=== PATIENT | female | born 1965 | race American Indian/Alaskan Native ===

== ENCOUNTER 2020-05-12 10:38 | Emergency (ER) | payer OTHER ==
[2020-05-12 10:52] VITALS: BP 142/106
[2020-05-12] MEDS ORDERED: IBUPROFEN 800 MG TAB PO ONE (11:13)
[2020-05-12] MEDS ORDERED: CYCLOBENZAPRINE 10 MG TAB PO ONE (11:13)
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
--- NOTE | 2020-05-12 12:43 | XRay Report ---
BILATERAL RIBS 7 VIEWS INDICATION / CLINICAL INFORMATION: pain. COMPARISON: Prior chest radiograph dated 05/02/2014. FINDINGS: RIBS: No acute, displaced fracture or other acute abnormality. LUNGS: No acute findings. No pneumothorax. Lap band with abdominal port is noted. Signer Name: Gabriel Beckwith MD Signed: 05/12/2020 12:38 PM Workstation Name: [id number]
== END 2020-05-12 14:02 | disposition home or self-care (01) ==
LOC: ED 10:38
DX: S29.011A Strain of muscle and tendon of front wall of thorax, initial encounter (principal); M79.10 Myalgia, unspecified site; Z79.899 Other long term (current) drug therapy; Z88.6 Allergy status to analgesic agent; Z88.2 Allergy status to sulfonamides; Z88.8 Allergy status to other drugs, medicaments and biological substances; V49.49XA Driver injured in collision with other motor vehicles in traffic accident, initial encounter; Y93.89 Activity, other specified; Y92.488 Other paved roadways as the place of occurrence of the external cause; Y99.8 Other external cause status
CPT/HCPCS: 71111; 99283

== ENCOUNTER 2021-03-05 11:50 | Emergency (ER) | payer SELFPAY ==
--- NOTE | 2021-03-05 15:07 | Emergency Department Report ---
Minor Respiratory - [facility] Chief Complaint: Sore Throat Stated Complaint: SORE THROAT Time Seen by Provider: 03/05/21 14:13 Duration: 2 Days Minor Respiratory: Yes Cough, No Chest Pain, No Fever Other History: 55-year-old -[place]ong[place] female presents to the emergency room complaining of back pain with cough and thick mucus. She states is been going on since . She admits to having a positive Covid exposure. She denies any fever chills no nausea no vomiting. She states that she has hypertension is currently on amlodipine 5 mg. She denies any fever no chills no nausea no vomiting no chest pain or shortness of breath. ED Review of Systems ROS: Stated complaint: SORE THROAT Other details as noted in HPI ED Past Medical Hx - Past Medical History Hx Hypertension: Yes Hx Congestive Heart Failure: No Hx Diabetes: No Hx Asthma: No Hx COPD: No Additional medical history: Vertigo - Surgical History Additional Surgical History: right oophorectomy, x 1, partial hysterectomy, 2 eye repair surgeries - Social History Smoking Status: Never Smoker Substance Use Type: None - Medications Home Medications: Home Medications Medication Instructions Recorded Confirmed Last Taken Type Cyclobenzaprine [Flexeril] 10 mg PO QHS PRN #20 tablet 05/12/20 Unknown Rx Ibuprofen [Motrin 800 MG tab] 800 mg PO Q8HR PRN #30 tablet 05/12/20 Unknown Rx Minor Respiratory Exam - Exam General: Vital signs noted. No distress. Alert and acting appropriately. HEENT: Yes Moist Mucous Membranes, No Pharyngeal Erythema, No Pharyngeal Exudates, No Rhinorrhea, No Conjuctival Injection, No Frontal Tenderness, No Maxillary Tenderness Ear: Neither TM Bulge, Neither TM Erythema, Neither EAC Pain, Neither EAC Discharge Neck: Yes Supple, No Adenopathy Lungs: Yes Good Air Exchange, No Wheezes, No Ronchi, No Stridor, No Cough, No Labored Respirations, No Retractions, No Use of Accessory Muscles, No Other Abnormal Lung Sounds Heart: Yes Regular, No Murmur Abdomen: Yes Normal Bowel Sounds, No Tenderness, No Peritoneal Signs Skin: No Rash, No Edema Neurologic: Alert and oriented, no deficits. Musculoskeletal: Unremarkable. ED Course Vital Signs 03/05/21 14:04 Temperature 98.4 F Pulse Rate 75 Respiratory 16 Rate Blood Pressure 162/98 [Left] O2 Sat by Pulse 96 Oximetry ED Medical Decision Making - Radiology Data Radiology results: report reviewed [facility] [address] [place] [address] XRay Report Signed Patient: EDA GARCÍA MR#: [id number] : 1965 Acct:[id number] Age/Sex: 55 / F ADM Date: 03/05/21 Loc: ED Attending Dr: Ordering Physician: JAREN GREEN Date of Service: 03/05/21 Procedure(s): XR chest routine 2V Accession Number(s): [id number] cc: JAREN GREEN Fluoro Time In Minutes: CHEST 2 VIEWS INDICATION / CLINICAL INFORMATION: cough, back pain with deep inspiratory. COMPARISON: 05/12/2020 FINDINGS: SUPPORT DEVICES: None. HEART / MEDIASTINUM: No significant abnormality. LUNGS / PLEURA: No significant pulmonary or pleural abnormality. No pneumothorax. ADDITIONAL FINDINGS: No significant additional findings. IMPRESSION: 1. No acute findings. Signer Name: Rudy Webb MD Signed: 03/05/2021 3:20 PM Workstation Name: [id number] Transcribed By: CW Dictated By: BOB WEBB MD Electronically Authenticated By: BOB WEBB MD Signed Date/Time: 03/05/21 1520 DD/ 1519 TD/TT: - Medical Decision Making 55-year-old -Mong[place] female presents to the emergency room complaining of back pain with cough and thick mucus. She states is been going on since . She admits to having a positive Covid exposure. She denies any fever chills no nausea no vomiting. She states that she has hypertension is currently on amlodipine 5 mg. She denies any fever no chills no nausea no vomiting no chest pain or shortness of breath. Chest x-ray has been ordered. Chest x-ray is negative for any acute findings. Patient vital signs are stable she is nontoxic in appearance no trouble breathing. Patient be discharged home encouraged to get Covid testing. Critical care attestation.: If time is entered above; I have spent that time in minutes in the direct care of this critically ill patient, excluding procedure time. ED Disposition Clinical Impression: Contact with and (suspected) exposure to covid-19 Disposition: HOME / SELF CARE / HOMELESS Is pt being admited?: No Does the pt Need Aspirin: No Condition: Stable Instructions: Prevent the Spread of COVID-19 if You Are Sick - CDC, COVID-19: How to Protect Yourself and Others - [facility] Additional Instructions: Your symptoms appear most consistent with a nonspecific viral syndrome. However, given this current pandemic, COVID-19 is in the differential of possibilities. Despite your previous negative COVID-19 test, I do recommend repeat outpatient Covid 19 testing. In the meantime, isolate/quarantine yourself and stay away from anyone who is elderly, immunocompromised or chronically ill. You can use ibuprofen every 6-8 hours and Tylenol every 4-8 hours, using the dosing on the back of the bottle, as needed for any fever or body aches. Return to the emergency department with any worsening of your symptoms, development of chest pain or shortness of breath, or with any acute distress. Chest x-ray is negative for any acute abnormalities. Forms: Work/School Release Form(ED)
--- NOTE | 2021-03-05 15:24 | XRay Report ---
CHEST 2 VIEWS INDICATION / CLINICAL INFORMATION: cough, back pain with deep inspiratory. COMPARISON: 05/12/2020 FINDINGS: SUPPORT DEVICES: None. HEART / MEDIASTINUM: No significant abnormality. LUNGS / PLEURA: No significant pulmonary or pleural abnormality. No pneumothorax. ADDITIONAL FINDINGS: No significant additional findings. IMPRESSION: 1. No acute findings. Signer Name: Rudy Pak MD Signed: 03/05/2021 3:20 PM Workstation Name: [id number]
[2021-03-05 16:27] VITALS: BP 162/80
== END 2021-03-05 16:27 | disposition home or self-care (01) ==
LOC: ED 11:50
DX: R05.9 Cough, unspecified (principal); I10 Essential (primary) hypertension; Z20.822 Contact with and (suspected) exposure to COVID-19; M54.9 Dorsalgia, unspecified
CPT/HCPCS: 71046; 99283

== ENCOUNTER 2021-03-13 10:51 | Outpatient (CLI) | payer OTHER ==
--- NOTE | 2021-03-13 11:56 | XRay Report ---
LUMBOSACRAL SPINE 3 VIEWS INDICATION: BACK PAIN. COMPARISON: None. IMPRESSION: Normal alignment. Mild disc space narrowing is identified at L5-S1. The remaining disc levels are unremarkable. There is mild facet arthropathy at L3-4 and L4-5. No acute osseous or soft t issue abnormality. Signer Name: Iam Hawkins Jr, MD Signed: 03/13/2021 11:52 AM Workstation Name: [id number]
== END 2021-03-13 10:52 | disposition home or self-care (01) ==
LOC: XRAY 10:51
PROVIDERS: ATTEND Internal Medicine
DX: M48.07 Spinal stenosis, lumbosacral region (principal); M47.817 Spondylosis without myelopathy or radiculopathy, lumbosacral region
CPT/HCPCS: 72100